=== PATIENT | female | born 1975 | race Asian ===

== ENCOUNTER 2020-03-29 18:20 | Emergency (ER) | payer OTHER, SELFPAY ==
--- NOTE | 2020-03-29 18:30 | ED.SKABFB ---
HPI - Skin/Abscess/Foreign Bdy General Chief complaint: Skin/Abscess/Foreign Body Stated complaint: rash Time Seen by Provider: 03/29/20 18:43 Source: patient and RN notes reviewed Mode of arrival: ambulatory Limitations: no limitations History of Present Illness HPI narrative: 45 old female presents with concern for rash. Reports 2 days after she mowed the lawn and cut trees she noticed a rash on her neck and spreading to her face. She reports is very itchy, she is tried [id number] remedies with no relief. She denies swollen lips, swollen tongue, vision changes, eye redness or discharge. MD complaint: rash Related Data Home Medications Medication Instructions Recorded Confirmed atorvastatin 20 mg PO DAILY 03/29/20 03/29/20 Allergies Allergy/AdvReac Type Severity Reaction Status Date / Time nut - unspecified Allergy Severe Rash Verified 03/29/20 18:36 peanut Allergy Severe Rash Verified 03/29/20 18:36 shellfish derived Allergy Swelling Verified 03/29/20 18:36 of Lip/Tongue/Throat Review of Systems Review of Systems: Narrative: CONSTITUTIONAL: Denies malaise, chills, sweats, or fever. EYES: Denies visual changes, redness, or discharge. ENT: Denies swollen lips, swollen tongue, difficulty swallowing CARDIOVASCULAR: Denies chest pain, palpitations, or edema. RESPIRATORY: Denies cough or dyspnea. GASTROINTESTINAL: Denies abdominal pain, nausea, vomiting SKIN: Reports itchy rash on face and neck MUSCULOSKELETAL: Denies myalgia. All systems reviewed & are unremarkable except as noted in HPI and below PMFSH Comments At time of signature, agree with nursing past medical, surgical, social and family history. There is no relevant family history pertinent to the presenting complaint Exam Narrative: Exam Narrative: GENERAL: Well-appearing, well-nourished, and in no acute distress. HEAD: Normocephalic, atraumatic. EYES: PERRLA, conjunctivae clear, sclera clear, no discharge ENT: Nares clear. Mucous membranes moist. Oropharynx without edema, erythema or lesions. NECK: Supple CHEST: No respiratory distress. Speaks in full sentences. HEART: Regular rate and rhythm. SKIN: Warm, dry. Erythematous patches of papules and plaque noted to neck, face NEURO: Alert and oriented x3. PSYCH: Normal mood and affect Course Course Emergency Course: Patient is aware of diagnosis, understands and agrees to treatment plan. Anticipatory guidance given. Patient agrees to follow-up as directed and is aware of reasons to seek care at the emergency department. Portions of this record may have been created with voice recognition software Vital Signs Vital signs: Vital Signs Temperature 97.1 F L 03/29/20 18:37 Pulse Rate 88 03/29/20 18:37 Respiratory Rate 20 03/29/20 18:37 Blood Pressure 131/83 03/29/20 18:37 Pulse Oximetry 99 03/29/20 18:37 Temperature 97.1 F L 03/29/20 18:37 Pulse Rate 88 03/29/20 18:37 Respiratory Rate 20 03/29/20 18:37 Blood Pressure 131/83 03/29/20 18:37 Pulse Oximetry 99 03/29/20 18:37 Reviewed. MDM - Skin/Abscess/Foreign Bdy MDM Narrative Medical decision making narrative: Does not appear at this time to be erythema multiforme, bullous, SJS, TEN; no evidence at this time to suggest RMSF, endocarditis or Lyme disease; patient looks well, nontoxic and is tolerating oral intake; no neurologic signs or symptoms; no headache, photophobia or neck pain; afebrile; appropriate for initial outpatient treatment; discussed the importance of follow-up, patient agrees; question, viral exanthema, contact dermatitis, allergic dermatitis, eczema, urticaria, shingles. No soft palate or uvula edema, no tongue, lip edema or other mucosal involvement, no respiratory compromise, no stridor, no wheezing, no wheezing, no history of syncope, no hypotension, no nausea, vomiting, or diarrhea. Instructed patient to go to nearest ER immediately for any worsening symptoms including but not limit
[2020-03-29 18:37] VITALS: BP 131/83; PULSE 88; RESP 20; TEMP 36.2; O2SAT 99
== END 2020-03-29 18:59 | disposition home or self-care (01) ==
PROVIDERS: Emergency Provider Nurse Practitioner; PCP Family Medicine
DX: L25.5 Unspecified contact dermatitis due to plants, except food (principal); E78.00 Pure hypercholesterolemia, unspecified
CPT/HCPCS: 99213; G0463

== ENCOUNTER 2022-07-21 09:03 | Emergency (ER) | payer OTHER, SELFPAY ==
[2022-07-21 09:12] VITALS: BP 128/78; PULSE 93; RESP 16; TEMP 36.5; O2SAT 100
--- NOTE | 2022-07-21 09:17 | ED.SKABFB ---
HPI - Skin/Abscess/Foreign Bdy General Chief complaint: Skin/Abscess/Foreign Body Stated complaint: Rt Facial Swelling and Irritation Time Seen by Provider: 07/21/22 09:17 Source: patient, RN notes reviewed and old records reviewed Mode of arrival: ambulatory Limitations: no limitations History of Present Illness HPI narrative: 47-year-old female presents to the [facility] with complaints of right facial swelling. patient reports that she was doing yd work over the weekend rubbed her face with something. Next day woke up with some irritation to that she and has gotten worse over the last 2 days. Denies fevers. No swelling just redness and indurated skin that measures 2 x 3 cm to the left cheek. Red raised blotchy rash just to the left arm. Patient describes areas as being very itchy, not pain no open wounds. Not tender to touch. Related Data Home Medications Medication Instructions Recorded Confirmed atorvastatin 20 mg tablet 20 mg PO DAILY 03/29/20 07/21/22 Allergies Allergy/AdvReac Type Severity Reaction Status Date / Time nut - unspecified Allergy Severe Rash Verified 03/29/20 18:36 peanut Allergy Severe Rash Verified 03/29/20 18:36 shellfish derived Allergy Swelling Verified 03/29/20 18:36 of Lip/Tongue/Throat Review of Systems Review of Systems: All systems reviewed & are unremarkable except as noted in HPI and below Constitutional: Constitutional: Reports no additional constitutional complaints Eyes: Eyes: Reports no additional eye complaints ENT: Reports system reviewed and no additional complaints, except as documented Cardiovascular: Cardiovascular: Reports no additional cardiovascular complaints, Denies chest pain and Denies dyspnea Respiratory: Respiratory: Reports no additional respiratory complaints, Denies chest congestion, Denies cough and Denies dyspnea Gastrointestinal: Gastrointestinal: Reports no additional gastrointestinal complaints, Denies abdominal pain, Denies nausea and Denies vomiting Musculoskeletal: Musculoskeletal: Reports no additional musculoskeletal complaints Integumentary/Breasts: Skin/Breast: Reports as per HPI Neurologic: Reports system reviewed and no additional complaints, except as documented Psychiatric: Psychiatric: Reports no additional psychiatric complaints Allergic/Immunologic: Allergic/Immunologic: Reports no additional allergic/immunologic complaints PMFSH Comments At the time of my signature, I reviewed and agree with the nursing past medical, surgical, social, and family history. There is no relevant family history pertinent to the patient complaint. Exam Const: General: cooperative, healthy appearing, comfortable, no acute distress, well developed, alert and well nourished Nutritional Appearance: well nourished Orientation/consciousness: patient oriented x3 Limitations: no limitations HENMT: Head: normal to inspection Ears: hearing grossly normal bilaterally and external ears normal Face/Nose/Sinus: Normal external nose present, Normal nares present, Normal nasal mucous membranes and turbinates present and normal facial exam Face and sinus: normal facial exam Mouth: Yes Normal oral and palatal mucosa present, Yes lip normal and Yes moist mucous membranes Throat: posterior oropharynx normal and uvula midline Eyes: General: appearance normal, both eyes and all related structures Alignment and Position: alignment normal Periorbital: periorbital findings normal Conjunctivae: conjunctivae normal Pupils: Equal, round and reactive pupils present EOM: EOMs intact bilaterally Neck: Neck: normal visual inspection, full ROM, no lymphadenopathy and no meningeal signs Chest: Chest palpation & inspection: normal inspection of the chest Resp: Effort & Inspection: normal respiratory effort and able to speak in complete sentences Auscultation: clear to auscultation bilaterally, no crackles, no rales, no rhonchi and no wheezes Cardio: Rate: regular
== END 2022-07-21 09:34 | disposition home or self-care (01) ==
PROVIDERS: Emergency Provider Nurse Practitioner
DX: L25.9 Unspecified contact dermatitis, unspecified cause (principal); E78.00 Pure hypercholesterolemia, unspecified
CPT/HCPCS: 99213; G0463